=== PATIENT | female | born 1965 | race Caucasian/White ===

== ENCOUNTER 2018-06-08 11:01 | Emergency (ER) | payer BC ==
--- NOTE | 2018-06-08 13:29 | UC ---
General HPI - HPI Summary HPI Summary: 53 yo female c/o R ant rib pain, L foot discomfort s/p t/f this morning while walking her puppy. No loc / no cp / no palpitations. No GI sx. Hurts ribs to take deep breath. No rash. No active bleeding. L foot pain with ambulation, more generalized mid foot. Able to bear weight. PMh - broken toe this past year - History of Current Complaint Chief Complaint: UCTrauma Stated Complaint: R RIB,L FOOT INJURY Time Seen by Provider: 06/08/18 12:53 Hx Obtained From: Patient Hx Last Menstrual Period: approx a year ago Pain Intensity: 3 - Allergy/Home Medications Allergies/Adverse Reactions: Allergies Allergy/AdvReac Type Severity Reaction Status Date / Time hydrocodone Allergy Intermediate GI Upset Verified 06/08/18 11:30 PMH/Surg Hx/FS Hx/Imm Hx Previously Healthy: Yes - Surgical History Surgical History: Yes Surgery Procedure, Year, and Place: ectopic - Family History Known Family History: Positive: None Negative: Cardiac Disease Family History: no known cardio-vascular issues in family - Social History Alcohol Use: Rare Substance Use Type: None Smoking Status (MU): Never Smoked Tobacco Have You Smoked in the Last Year: No Review of Systems All Other Systems Reviewed And Are Negative: Yes Constitutional: Positive: Negative Skin: Positive: Negative Eyes: Positive: Negative ENT: Positive: Negative Respiratory: Positive: Other - see hpi Cardiovascular: Positive: Other - see hpi Gastrointestinal: Positive: Negative Genitourinary: Positive: Negative Motor: Positive: Other - see hpi Musculoskeletal: Positive: Negative Neurological: Positive: Negative Psychological: Positive: Negative Is Patient Immunocompromised?: No Physical Exam Triage Information Reviewed: Yes Appearance: Well-Nourished Vital Signs: Initial Vital Signs Temp 98.4 F 06/08/18 11:24 Pulse 94 06/08/18 11:24 Resp 20 06/08/18 11:24 BP 137/78 06/08/18 11:24 Pulse Ox 97 06/08/18 11:24 Vital Signs Reviewed: Yes Eye Exam: Normal ENT Exam: Normal Neck exam: Normal Neck: Positive: Supple Respiratory Exam: Other - very tender lower Right ant ribs. No crepitus or outward deformity. Respiratory: Positive: Normal breath sounds, No respiratory distress, No accessory muscle use Cardiovascular Exam: Normal Cardiovascular: Positive: RRR, No Murmur, Pulses Normal, Brisk Capillary Refill Abdominal Exam: Normal - Tender R lower ant ribs as above. No back pain no cvat Musculoskeletal Exam: Other - see above re ribs L foot - without point bony tenderness. + dp/pt pulses. CR good. Distal sens LT presen. Neurological Exam: Normal - grossly nonfocal Psychological Exam: Normal - normal Skin Exam: Normal Course/Dx - Course Course Of Treatment: declines cam boot. questions as posed answered to the best of my ability. f/u pcp - will call for appt. CXR, right ribs, left foot xray - nad - Differential Dx - Multi-Symptom Provider Diagnoses: Acute L sided rib injury (suspect fx, at least bruise). Acute left foot sprain Discharge - Sign-Out/Discharge Documenting (check all that apply): Patient Departure All imaging exams completed and their final reports reviewed: Yes - Discharge Plan Condition: Stable Disposition: HOME Prescriptions: Naproxen [Naproxen 500 mg tab] 500 mg PO BID PRN #30 tablet PRN Reason: Pain Patient Education Materials: Foot Sprain (ED), Rib Contusion (ED) Referrals: Destinee Rico MD [Primary Care Provider] - Additional Instructions: Call Dr. Rico to schedule follow up, in the next 1-2 weeks for respiratory recheck. Seek medical attention for worse or new problems in the meantime. - Billing Disposition and Condition Condition: STABLE Disposition: Home
[2018-06-08 14:05] VITALS: BP 127/83
[2018-06-08] MEDS ORDERED: Naproxen TAB* 250 MG PO ONE (14:06)
== END 2018-06-08 14:35 | disposition home or self-care (01) ==
LOC: UCEAST 11:01
DX: S29.9XXA Unspecified injury of thorax, initial encounter (principal); S93.602A Unspecified sprain of left foot, initial encounter; Z88.5 Allergy status to narcotic agent; X58.XXXA Exposure to other specified factors, initial encounter; Y92.9 Unspecified place or not applicable
CPT/HCPCS: 71046; 99212; A9270-GY; G0463